=== PATIENT | male | born 1945 | race Caucasian/White ===

== ENCOUNTER → 2016-11-27 | Outpatient (CLI) | payer OTHER ==
[~2016-11-27] MED LIST: ASPI81 PO; AVANDAMET; BENZ100C4 PO; GLIM1TAB PO; HYDR12.56 PO; LISI2.5T55 PO; MUCI600T PO; PRIL10CA PO; SIMV5TAB32 PO; SPACER; VENTAER INH
--- NOTE | 2016-11-27 11:53 | RADRPT ---
EXAM DATE/TIME: 11/27/2016 10:12 [place] COMPARISON: No previous studies available for comparison. INDICATIONS : Chest tightness. Abnormal stress test. RADIATION DOSE: 3.52 CTDIvol (mGy) MEDICAL HISTORY : Hypertension. Diabetes mellitus type 2. SURGICAL HISTORY : None. ENCOUNTER: Initial ACUITY: 2 weeks PAIN SCALE: 0/10 LOCATION: chest TECHNIQUE: Low-dose prospectively gated CT images of the heart were obtained and quantitative analysis of [place] ry artery calcification was performed. Comparison was made to a patient database of similar age and g marco antonio. Using automated exposure control and adjustment of the mA and/or kV according to patient size , radiation dose was kept as low as reasonably achievable to obtain optimal diagnostic quality images . FINDINGS: Extensive calcification of the coronary arteries. Visualized portions of the lungs are clear with min imal atelectatic changes in the left lingula. Suggestion of postsurgical changes in the upper abdomen possibly representing prior gastric bypass. SCORE: 1405 PERCENTILE: 80th - 20% of males age 66-71 will have a higher calcium score LOCATION: Left main 0 LAD 768 Circumflex 219 RCA 418 TOTAL 1405 RECOMMENDATION: Markedly elevated calcium score. Life style./diet modification recommended. CONCLUSION: Markedly elevated calcium score as detailed above. Jerson Thomas MD on November 27, 2016 at 11:43 Board Certified Radiologist. This report was verified electronically.
== END ==
LOC: HRAD 09:30
DX: I25.119 Atherosclerotic heart disease of native coronary artery with unspecified angina pectoris (principal); R07.89 Other chest pain; R94.39 Abnormal result of other cardiovascular function study
CPT/HCPCS: 75571